=== PATIENT | male | born 1945 | race Caucasian/White ===

== ENCOUNTER 2019-05-07 05:25 | Day surgery (SDC) | payer MEDICARE, BC ==
[2019-05-01 15:40] LABS: BASOPHILS # (AUTO) 0.1 X10'3 (0-0.2); BASOPHILS % (AUTO) 1.1 % (0-1); EOSINOPHILS % (AUTO) 0.5 % (0-6); LYMPHOCYTES # (AUTO) 1.4 X10'3 (1.1-4.8); MEAN CORPUSCULAR HEMOGLOBIN 30.8 PG (27.0-31.0); MEAN CORPUSCULAR HGB CONC 34.3 g/dL (33.0-36.5); MEAN CORPUSCULAR VOLUME 89.8 FL (78-98); MEAN PLATELET VOLUME 8.7 FL (7.4-10.4); MONOCYTES # (AUTO) 0.8 X10'3 (0-0.9); MONOCYTES % (AUTO) 9.3 % (2-12); NEUTROPHILS # (AUTO) 6.5 X10'3 (1.8-7.7); NEUTROPHILS % (AUTO) 73.1 % (42-75); PRE OP HEMATOCRIT 49.6 % (42.0-52.0); PRE OP PLATELET COUNT 256 X10'3 (140-440); RED BLOOD COUNT 5.53 X10'6 (4.70-6.10); RED CELL DISTRIBUTION WIDTH 13.9 % (11.5-14.5)
[2019-05-01 15:57] LABS: ALBUMIN/GLOBULIN RATIO 1.3 (1.1-1.5); ALKALINE PHOSPHATASE 51 IU/L (46-116); BLOOD UREA NITROGEN 16 MG/DL (7-18); BUN/CREATININE RATIO 12.4 (5.4-32.0); CHLORIDE 108 MMOL/L (99-107); CREATININE 1.29 MG/DL (0.60-1.10); PRE OP ALT 32 U/L (30-65); PRE OP ANION GAP 6 (8-16); PRE OP AST 33 U/L (10-37); PRE OP BILIRUB, TOTAL 1.4 MG/DL (0.0-1.0); PRE OP GLUCOSE 113 MG/DL (70-104); PRE OP POTASSIUM 4.5 MMOL/L (3.4-5.1); PRE OP SODIUM 142 MMOL/L (135-145); TOTAL CARBON DIOXIDE 28.4 MMOL/L (24-32); TOTAL PROTEIN 7.2 G/DL (6.4-8.2); eGFR 55 ML/MIN
[~2019-05-07] VITALS: Ht 172.7 cm; Wt 86.2 kg
[~2019-05-07 05:25] MED LIST: AMLO2.5T4 PO; LORA10TA65 PO; PRAV40TA3 PO; VALS40TA2 PO; ringers solution, lacted 1,000 ML IV SCH
[2019-05-07 05:30] VITALS: BP 122/71
[2019-05-07] MEDS ORDERED: vancomycin inj 1,500 MG in normal saline 300ml IV soln IV ONE (05:30)
[2019-05-07] MEDS ORDERED: cefazolin/dext.iso 2gm/100ml 100 ML IV ONE (05:30)
[2019-05-07] MEDS ORDERED: famotidine 10mg tablet PO ONE (05:30)
[2019-05-07] MEDS ORDERED: LIDOcaine 1% (10mg/ml) 2ml vial ONE (05:40)
[2019-05-07] MEDS ORDERED: OMEP20TA23 PO (06:06)
[2019-05-07] MEDS ORDERED: BUPIVAcaine/PF 2.5 mg/ml (0.25%) 30ml vial ONE (06:36)
[2019-05-07] MEDS ORDERED: BUPIVAcaine/PF 2.5mg/ml (0.25%) 10ml vial ONE (07:00)
[2019-05-07] MEDS ORDERED: BUPIVACAINE liposomal/PF 13.3 MG/ML vial IM ONE (07:12)
[2019-05-07] MEDS ORDERED: BUPIVAcaine 0.5% inj/PF 30 ML ONE (07:12)
[2019-05-07] MEDS ORDERED: fentaNYL /PF 50mcg/ml 5ml ampule ONE (07:17)
[2019-05-07] MEDS ORDERED: midazolam 2 mg/2 ml injection ONE (07:17)
[2019-05-07] MEDS ORDERED: propofol inj 20 ML IV ONE (07:18)
[2019-05-07] MEDS ORDERED: LIDOcaine 2% (20mg/ml) 5ml vial ONE (07:18)
[2019-05-07] MEDS ORDERED: ondansetron/PF 4mg/2ml inj ONE (07:18)
[2019-05-07] MEDS ORDERED: ringers solution, lacted 1,000 ML IV SCH (07:23)
[2019-05-07] MEDS ORDERED: morphine 4 MG/ML inj SYRINge IV PRN ×2 (07:25)
[2019-05-07] MEDS ORDERED: fentaNYL/PF 50MCG/1 ML 2ML syringe IV PRN ×2 (07:25)
[2019-05-07] MEDS ORDERED: labetalol 20mg/4ml (5mg/ml) syringe IV PRN (07:25)
[2019-05-07] MEDS ORDERED: hydrALAZINE 20mg/ml inj. IV PRN (07:25)
[2019-05-07] MEDS ORDERED: ondansetron/PF 4mg/2ml inj IV PRN (07:25)
[2019-05-07] MEDS ORDERED: sevoflurane 250ml liquid IH ONE (07:30)
[2019-05-07] MEDS ORDERED: dexamethasone sod phosphate 10mg/ml inj ONE (07:30)
[2019-05-07] MEDS ORDERED: ePHEDrine 50MG/ML INJ. ONE (07:51)
[2019-05-07 09:28] VITALS: BP 140/49
--- NOTE | 2019-05-07 09:28 | NUR ---
Received from OR via [facility] , accompanied by Anesthesiologist JENNI and report given by Anesthesiolgist. PATIENT WITH ANTERIOR LEFT SHOULDER DRESSING THAT IS CDI. ABDUCTION SLING IN PLACE. MOVES ALL FINGERS AND THUMB. + CAP REFILL AND RADIAL PULSE PRESENT. 10L MASK ON WITH 100% SASTURATIONS. Addendum: 05/07/19 at 0943 by Heriberto Donohue RN, RN Amended: Links added.
[2019-05-07 09:38] VITALS: BP 124/71
[2019-05-07 09:48] VITALS: BP 122/68
[2019-05-07 09:58] VITALS: BP 130/70
[2019-05-07 10:08] VITALS: BP 138/75
--- NOTE | 2019-05-07 10:18 | NUR ---
ALL CRITERIA FOR TRANSFER TO THE FLOOR HAS BEEN ACHIEVED. VSS. BED LOW, CALL LIGHT AND VS. SET IN PLACE. RN PRESENT TO ACCEPT CARE. PATIENT RESTING COMFORTABLY IN BED. BELONGINGS SENT WITH PATIENT. DRESSINGS CDI. Addendum: 05/07/19 at 1034 by Heriberto Donohue RN RN Amended: Links added.
== END 2019-05-07 10:18 | disposition home or self-care (01) ==
LOC: PAS 05:25
PROVIDERS: ATTEND Orthopaedic Surgery
DX: S46.012A Strain of muscle(s) and tendon(s) of the rotator cuff of left shoulder, initial encounter (principal); S46.112A Strain of muscle, fascia and tendon of long head of biceps, left arm, initial encounter; S43.432A Superior glenoid labrum lesion of left shoulder, initial encounter; M94.212 Chondromalacia, left shoulder; M65.812 Other synovitis and tenosynovitis, left shoulder; M19.012 Primary osteoarthritis, left shoulder; M19.011 Primary osteoarthritis, right shoulder; K21.9 Gastro-esophageal reflux disease without esophagitis; I10 Essential (primary) hypertension; G89.18 Other acute postprocedural pain; E78.5 Hyperlipidemia, unspecified; F32.89 Other specified depressive episodes; E66.8 Other obesity; Z68.29 Body mass index [BMI] 29.0-29.9, adult; Z88.5 Allergy status to narcotic agent; Z88.2 Allergy status to sulfonamides; Z90.49 Acquired absence of other specified parts of digestive tract; Z96.652 Presence of left artificial knee joint; Z79.899 Other long term (current) drug therapy; X58.XXXA Exposure to other specified factors, initial encounter; Y93.89 Activity, other specified; Y99.8 Other external cause status; Y92.89 Other specified places as the place of occurrence of the external cause
CPT/HCPCS: 23412; 23430; 29821; 29823; 29824; 36415; 64415; 80053; 82948; 85025; 93005; C1713; C9290; J1100; J2001; J2250; J2405; J2704; J3010; J3370; J3490; J7120; A4215; A4565; A4618; A6250; A6449; A7000